=== PATIENT | male | born 1950 | race Caucasian/White ===

== ENCOUNTER 2017-08-02 14:21 | Inpatient (IN) | payer MEDICARE, OTHER ==
[~2017-08-02] VITALS: Ht 170.2 cm; Wt 66.0 kg
[~2017-08-02 14:21] MED LIST: FOLI1TAB85 PO; GLIP5 PO; REPA2 PO; SEVEC800 PO; VITAD1000 PO
[2017-08-02 15:32] LABS: GLUCOSE,POINT OF CARE 239 MG/DL (70-110)
[2017-08-02 18:54] LABS: BASOPHILS % (AUTO) 0.5 % (0.0-2.0); EOSINOPHILS % (AUTO) 1.5 % (1.0-6.0); HEMATOCRIT 34.3 % (41-53); HEMOGLOBIN 11.7 g/dL (13.5-17.5); LYMPHOCYTES # (AUTO) 1.3 K/uL (1.0-4.8); MEAN CORPUSCULAR HEMOGLOBIN 32.6 pg (26.0-34.0); MEAN CORPUSCULAR VOLUME 96 fL (80-100); MONOCYTES # (AUTO) 0.8 K/uL (0.1-1.0); MONOCYTES % (AUTO) 11.3 % (2.0-9.0); NEUTROPHILS # (AUTO) 4.6 K/uL (1.8-7.7); NEUTROPHILS % (AUTO) 67.7 % (40.0-70.0); PLATELET COUNT (AUTO) 188 K/uL (150-450); RED BLOOD CELL COUNT(AUTO) 3.58 MIL/uL (4.50-5.90); RED CELL DISTRIBUTION WIDTH 13.9 % (11.5-14.5)
[2017-08-02 18:57] LABS: CALCIUM, TOTAL 8.8 mg/dL (8.8-10.5); CREATININE 5.97 mg/dL (0.60-1.30); POTASSIUM 4.3 mmol/L (3.5-5.1)
[2017-08-02 19:02] LABS: ALBUMIN 3.2 g/dL (3.4-5.0); BILIRUBIN,TOTAL 0.5 mg/dL (0.1-1.0); TOTAL PROTEIN, SERUM 7.8 g/dL (6.4-8.2)
[2017-08-02 19:08] LABS: LACTIC ACID 1.4 mmol/L (0.4-2.0)
[2017-08-02] MEDS ORDERED: 0.9% SODIUM CHLORIDE 10 ML SYRINGE IVP PRN (20:00)
[2017-08-02] MEDS ORDERED: ACETAMINOPHEN 325 MG TABLET PO PRN (20:00)
[2017-08-02] MEDS ORDERED: ONDANSETRON HCL 4 MG/2 ML VIAL IVP PRN (20:00)
[2017-08-02 22:19] VITALS: BP 137/71
[2017-08-02 22:23] LABS: GLUCOSE,POINT OF CARE 236 MG/DL (70-110)
[2017-08-02 23:12] LABS: GLUCOSE,POINT OF CARE 246 MG/DL (70-110)
[2017-08-03 00:13] VITALS: BP 129/74
[2017-08-03 04:28] VITALS: BP 122/78
[2017-08-03 07:03] LABS: GLUCOSE,POINT OF CARE 195 MG/DL (70-110)
[2017-08-03 09:18] VITALS: BP 153/74
[2017-08-03 09:22] VITALS: BP 153/74
[2017-08-03 12:00] VITALS: BP 138/78
[2017-08-03] MEDS ORDERED: CHOLECALCIFEROL (VIT D3) 1,000 UNITS TABLET PO SCH (13:30)
[2017-08-03] MEDS ORDERED: GlipiZIDE 5 MG TABLET PO SCH (17:00)
[2017-08-03] MEDS ORDERED: REPAGLINIDE 2 MG TABLET PO SCH (17:30)
[2017-08-03] MEDS ORDERED: SEVELAMER CARBONATE 800 MG TABLET PO SCH (17:30)
[2017-08-04] MEDS ORDERED: VITAMIN B COMP/VIT C/FOLIC ACID CAPSULE PO SCH (09:00)
== END 2017-08-03 17:07 | disposition left against medical advice (07) | DRG 602 ==
LOC: EMS 14:23 → 6N 20:00 → AHU 20:00
PROVIDERS: ADMIT Hospitalist; ATTEND Hospitalist
DX: L08.9 Local infection of the skin and subcutaneous tissue, unspecified (principal); N18.6 End stage renal disease; E11.22 Type 2 diabetes mellitus with diabetic chronic kidney disease; E11.40 Type 2 diabetes mellitus with diabetic neuropathy, unspecified; I12.0 Hypertensive chronic kidney disease with stage 5 chronic kidney disease or end stage renal disease; E11.628 Type 2 diabetes mellitus with other skin complications; S90.424A Blister (nonthermal), right lesser toe(s), initial encounter; E11.51 Type 2 diabetes mellitus with diabetic peripheral angiopathy without gangrene; H54.8 Legal blindness, as defined in USA; Z99.2 Dependence on renal dialysis; Z82.49 Family history of ischemic heart disease and other diseases of the circulatory system; Z90.49 Acquired absence of other specified parts of digestive tract; Z88.6 Allergy status to analgesic agent; Z91.013 Allergy to seafood; Z79.899 Other long term (current) drug therapy; X58.XXXA Exposure to other specified factors, initial encounter; Y93.89 Activity, other specified; Y92.89 Other specified places as the place of occurrence of the external cause; Y99.8 Other external cause status
CPT/HCPCS: 82962; 83605; 87040; 93005; 99285